=== PATIENT | female | born 1995 | race Caucasian/White ===

== ENCOUNTER 2019-01-01 08:03 | Outpatient (CLI) | payer MEDICAID ==
[~2019-01-01] VITALS: Ht 175.3 cm; Wt 104.1 kg
[~2019-01-01 08:03] MED LIST: CEPH-368 PO; HYDR-3240 PO; IBUP-1222 PO; SULF1TAB24 PO
[2019-01-01 09:00] VITALS: BP 123/65
[2019-01-01] MEDS ORDERED: PREN1TAB10 PO (10:45)
[2019-01-02] MEDS ORDERED: OXYC-302 PO (11:31)
[2019-01-02] MEDS ORDERED: IBUP-1222 PO (11:32)
== END 2019-01-01 11:13 | disposition home or self-care (01) ==
LOC: LDOP 08:03 → EDSTATUS 01-02 08:00
PROVIDERS: ATTEND Obstetrics & Gynecology
DX: O26.893 Other specified pregnancy related conditions, third trimester (principal); R10.9 Unspecified abdominal pain; Z3A.40 40 weeks gestation of pregnancy
CPT/HCPCS: 59025; 99211; G0463

== ENCOUNTER 2019-01-01 14:26 | Outpatient (CLI) | payer MEDICAID ==
[~2019-01-01] VITALS: Ht 175.3 cm; Wt 104.1 kg
[~2019-01-01 14:26] MED LIST changes: +PREN1TAB10 PO
[2019-01-01] MEDS ORDERED: OXYTOCIN 30U/ 0.9% NaCL 500ML 500 ML ONE (22:42)
[2019-01-02] MEDS ORDERED: OXYC-302 PO (11:31)
[2019-01-02] MEDS ORDERED: IBUP-1222 PO (11:32)
== END 2019-01-01 23:59 | disposition home or self-care (01) ==
LOC: LDOP 14:26
PROVIDERS: ATTEND Obstetrics & Gynecology
DX: Z02.9 Encounter for administrative examinations, unspecified (principal)

== ENCOUNTER 2019-01-01 15:09 | Inpatient (IN) | payer MEDICAID ==
[~2019-01-01] VITALS: Ht 175.3 cm; Wt 104.1 kg
[2019-01-01] MEDS ORDERED: NEWBORN KIT ONE (15:14)
[2019-01-01] MEDS ORDERED: LIDOCAINE 1%, 20ML ONE (15:15)
[2019-01-01] MEDS ORDERED: OXYTOCIN 30U/ 0.9% NaCL 500ML 500 ML ONE (15:15)
[2019-01-01] MEDS ORDERED: MISOPROSTOL 200 MCG TABLET ONE (15:15)
[2019-01-01] MEDS ORDERED: D5%-LACTATED RINGERS 1,000 ML IV SCH (15:20)
[2019-01-01] MEDS ORDERED: OXYTOCIN 30U/ 0.9% NaCL 500ML 500 ML IV ONE (15:20)
[2019-01-01] MEDS ORDERED: OXYTOCIN 30U/ 0.9% NaCL 500ML 500 ML IV PRN ×2 (15:20)
[2019-01-01] MEDS ORDERED: ONDANSETRON 2MG/ML, 2ML IVPush PRN (15:30)
[2019-01-01] MEDS ORDERED: FENTANYL PF 100 MCG/2ML IV PRN (15:30)
[2019-01-01] MEDS ORDERED: FENTANYL PF 100 MCG/2ML IVPush PRN (15:30)
[2019-01-01] MEDS: LACTATED RINGERS 1,000 ML IV SCH ×3 (15:33→17:32)
[2019-01-01 15:55] LABS: MEAN CORPUSCULAR HEMOGLOBIN 29.9 pg (27.0-34.8); MEAN CORPUSCULAR HGB CONC 34.4 g/dL (32.4-35.8); MEAN CORPUSCULAR VOLUME 86.7 fL (80-100); MEAN PLATELET VOLUME 7.4 fL (7.4-10.4); PLATELET COUNT 227 x10^3/uL (130-400); RED BLOOD COUNT 4.43 x10^6/uL (3.82-5.3); RED CELL DISTRIBUTION WIDTH 14.4 % (9.6-15.2)
[2019-01-01] MEDS ORDERED: FENTANYL/BUPIV./NS/PF 250 ML EPIDCONT SCH ×2 (15:57→16:48)
[2019-01-01] MEDS ORDERED: LACTATED RINGERS 1,000 ML IV SCH (15:57)
[2019-01-01 15:58] LABS: BASOPHILS # (AUTO) 0.05 x10^3/uL (0-0.1); BASOPHILS % (AUTO) 0 % (0-1); EOSINOPHILS # (AUTO) 0.35 x10^3/uL (0-0.4); EOSINOPHILS % (AUTO) 2 % (1-7); LYMPHOCYTES # (AUTO) 1.58 x10^3/uL (1-3.4); LYMPHOCYTES % (AUTO) 9 % (22-44); MD NO; MONOCYTES # (AUTO) 0.59 x10^3/uL (0.2-0.8); MONOCYTES % (AUTO) 3 % (2-9); NEUTROPHILS # (AUTO) 15.52 x10^3/uL (1.8-6.8); NEUTROPHILS % (AUTO) 86 % (42-75)
[2019-01-01] MEDS ORDERED: LACTATED RINGERS 1,000 ML IVBOLUS PRN ×2 (16:00→17:00)
[2019-01-01] MEDS ORDERED: FENTANYL PF 500 MCG, BUPIVACAINE/PF 0.5%, 30ML 62.5 ML in SODIUM CHLORIDE 0.9% 177.5 ML EPIDCONT SCH (16:30)
[2019-01-01] MEDS ORDERED: ONDANSETRON 2MG/ML, 2ML ONE (16:43)
[2019-01-01] MEDS ORDERED: BUPIVACAINE 0.25% ONE (16:50)
[2019-01-01] MEDS ORDERED: EPHEDRINE 50 MG/ML, 1ML IVPush PRN (17:00)
[2019-01-01] MEDS ORDERED: NALOXONE 0.4 MG/ML, 1ML IVPush PRN (17:00)
[2019-01-01] MEDS: OXYTOCIN 30U/ 0.9% NaCL 500ML 500 ML IV SCH ×3 (21:22→23:13)
[2019-01-01] MEDS ORDERED: OXYTOCIN 10 UNITS/ML, 1ML IM PRN (22:00)
[2019-01-01] MEDS ORDERED: OXYcodone IR 5MG TABLET PO PRN (22:00)
[2019-01-01] MEDS ORDERED: CALCIUM CARBONATE 500 MG TAB.CHEW PO PRN (22:00)
[2019-01-01] MEDS ORDERED: DOCUSATE 100 MG CAPSULE PO PRN (22:00)
[2019-01-01] MEDS ORDERED: MAGNESIUM HYDROXIDE 8%, 30ML UDC PO PRN (22:00)
[2019-01-01] MEDS ORDERED: ACETAMINOPHEN 325 MG TABLET PO PRN ×2 (22:00)
[2019-01-01] MEDS ORDERED: OXYcodone/APAP 5/325MG TABLET PO PRN (22:00)
[2019-01-01] MEDS ORDERED: ONDANSETRON 2MG/ML, 2ML IV PRN (22:00)
[2019-01-01] MEDS ORDERED: METHYLERGONOVINE 0.2 MG/ML IM PRN (22:00)
[2019-01-02] MEDS: IBUPROFEN 800 MG TABLET PO PRN ×3 (00:28→18:10)
[2019-01-02 00:30] VITALS: BP 105/62
[2019-01-02] MEDS: OXYTOCIN 30U/ 0.9% NaCL 500ML 500 ML IV SCH ×3 (00:39→17:47)
[2019-01-02] MEDS: LACTATED RINGERS 1,000 ML IV SCH (00:48)
[2019-01-02 03:40] VITALS: BP 102/63
[2019-01-02 06:17] LABS: BASOPHILS # (AUTO) 0.04 x10^3/uL (0-0.1); BASOPHILS % (AUTO) 0 % (0-1); EOSINOPHILS # (AUTO) 0.35 x10^3/uL (0-0.4); EOSINOPHILS % (AUTO) 2 % (1-7); LYMPHOCYTES # (AUTO) 2.37 x10^3/uL (1-3.4); LYMPHOCYTES % (AUTO) 13 % (22-44); MD NO; MEAN CORPUSCULAR HEMOGLOBIN 30.1 pg (27.0-34.8); MEAN CORPUSCULAR HGB CONC 34.3 g/dL (32.4-35.8); MEAN CORPUSCULAR VOLUME 87.8 fL (80-100); MEAN PLATELET VOLUME 7.6 fL (7.4-10.4); MONOCYTES # (AUTO) 1.12 x10^3/uL (0.2-0.8); MONOCYTES % (AUTO) 6 % (2-9); NEUTROPHILS # (AUTO) 13.96 x10^3/uL (1.8-6.8); NEUTROPHILS % (AUTO) 78 % (42-75); PLATELET COUNT 207 x10^3/uL (130-400); RED BLOOD COUNT 3.51 x10^6/uL (3.82-5.3); RED CELL DISTRIBUTION WIDTH 14.4 % (9.6-15.2)
[2019-01-02 07:15] VITALS: BP 99/62
[2019-01-02] MEDS ORDERED: PRENATAL VIT/IRON/FA 1 EACH TABLET PO SCH (09:00)
[2019-01-02] MEDS ORDERED: RHOGAM FROM BLOOD BANK 1 NOTE EA IM/IV ONE (09:00)
[2019-01-02] MEDS ORDERED: OXYC-302 PO (11:31)
[2019-01-02] MEDS ORDERED: IBUP-1222 PO (11:32)
[2019-01-02 12:05] VITALS: BP 99/62
[2019-01-02 16:40] VITALS: BP 99/56
[2019-01-02 19:00] VITALS: BP 108/67
== END 2019-01-02 22:35 | disposition home or self-care (01) | DRG 807 ==
LOC: LDIP 15:09 → 2NW 01-02 00:10
PROVIDERS: ADMIT Obstetrics & Gynecology; ATTEND Obstetrics & Gynecology
PROC: 10E0XZZ Delivery of Products of Conception, External Approach (ICD-10-PCS; principal; 2019-01-01)
PROC: 3E0R3BZ Introduction of Anesthetic Agent into Spinal Canal, Percutaneous Approach (ICD-10-PCS; 2019-01-01)
PROC: 00HU33Z Insertion of Infusion Device into Spinal Canal, Percutaneous Approach (ICD-10-PCS; 2019-01-01)
PROC: 10907ZC Drainage of Amniotic Fluid, Therapeutic from Products of Conception, Via Natural or Artificial Opening (ICD-10-PCS; 2019-01-01)
PROC: 0HQ9XZZ Repair Perineum Skin, External Approach (ICD-10-PCS; 2019-01-01)
PROC: 3E0234Z Introduction of Serum, Toxoid and Vaccine into Muscle, Percutaneous Approach (ICD-10-PCS; 2019-01-02)
DX: O70.0 First degree perineal laceration during delivery (principal); Z37.0 Single live birth; Z3A.40 40 weeks gestation of pregnancy; Z88.8 Allergy status to other drugs, medicaments and biological substances
CPT/HCPCS: 36415; 87806; J2790; J7121; 85025; 85461; 86762; 86850; 86900; 90656; G0378; J2405; J3010; J3490; G0475; J2590; J7050; J7120

== ENCOUNTER 2019-08-08 01:43 | Emergency (ER) | payer MEDICAID ==
[~2019-08-08] VITALS: Ht 175.3 cm; Wt 96.0 kg
[~2019-08-08 01:43] MED LIST changes: +OXYC-302 PO
--- NOTE | 2019-08-08 02:09 | NUR ---
TP RN: MERCEDES CALLED FOR PT
[2019-08-08 02:15] LABS: BASOPHILS # (AUTO) 0.03 x10^3/uL (0-0.1); BASOPHILS % (AUTO) 0 % (0-1); EOSINOPHILS # (AUTO) 0.16 x10^3/uL (0-0.4); EOSINOPHILS % (AUTO) 2 % (1-7); LYMPHOCYTES # (AUTO) 1.98 x10^3/uL (1-3.4); LYMPHOCYTES % (AUTO) 19 % (22-44); MD NO; MEAN CORPUSCULAR HEMOGLOBIN 29.2 pg (27.0-34.8); MEAN CORPUSCULAR HGB CONC 33.6 g/dL (32.4-35.8); MEAN CORPUSCULAR VOLUME 87.1 fL (80-100); MEAN PLATELET VOLUME 7.7 fL (7.4-10.4); MONOCYTES % (AUTO) 5 % (2-9); NEUTROPHILS # (AUTO) 8.02 x10^3/uL (1.8-6.8); NEUTROPHILS % (AUTO) 75 % (42-75); PLATELET COUNT 254 x10^3/uL (130-400); RED BLOOD COUNT 5.16 x10^6/uL (3.82-5.3); RED CELL DISTRIBUTION WIDTH 14.3 % (9.6-15.2)
--- NOTE | 2019-08-08 02:19 | NUR ---
RECEIVED REPORT FROM PUJA CAMPBELL(BREAKING FOR LUNCH) TO ASSUME CARE OF PT. URINE SAMPLE REQUESTED AND PT. ATTEMPTING TO PROVIDE AT THIS TIME.
[2019-08-08 02:27] LABS: ALANINE AMINOTRANSFERASE 54 U/L (12-78); ALBUMIN 4.3 g/dL (3.4-5.0); SALICYLATE LEVEL 1.8 mg/dL (2.8-20.0)
[2019-08-08 02:32] LABS: ALKALINE PHOSPHATASE 131 U/L (45-117); BILIRUBIN,TOTAL 0.6 mg/dL (0.2-1.0); TOTAL PROTEIN 7.8 g/dL (6.4-8.2)
--- NOTE | 2019-08-08 02:36 | NUR ---
PT. FATHER WAS IN LOBBY AND PT. HAD REQUESTED NO VISITORS UPON ARRIVAL. AT THIS TIME PT. REQUEST FOR FATHER TO COME BACK; FATHER NOW IN ROOM WITH PT. SITTER IN [place], ROOM SECURED. PT. VERY TEARFUL. PT. DENIES ANY PREVIOUS HX OF SI. PROCESS/POC DISCUSSED WITH PT. PT. CALM AND COOPERATIVE WITH STAFF.
[2019-08-08 02:40] LABS: ANION GAP 10 mmol/L (5-15); CHLORIDE 110 mmol/L (98-107)
--- NOTE | 2019-08-08 02:42 | NUR ---
PT HOME MED TAKEN TO PHARMACY.
[2019-08-08 02:47] LABS: AMPHETAMINE SCREEN, URINE Negative (Negative); BARBITURATE SCREEN, URINE Negative (Negative); BENZODIAZEPINE SCREEN, URINE Negative (Negative); CANNABINOID SCREEN, URINE Negative (Negative); COCAINE SCREEN, URINE Positive (Negative); METHADONE SCREEN, URINE Negative (Negative); OPIATE SCREEN, URINE Negative (Negative)
--- NOTE | 2019-08-08 04:11 | NUR ---
PT. FATHER LEFT BS AT THIS TIME. PT. AND FATHER WERE UPDATED ON POC AT THIS TIME FOR HBI EVAL IN THE AM. PT. PROVIDED WITH SPRITE PER REQUEST FOLLOWING SI PRECAUTIONS. PT. DENIES OTHER NEEDS AT THIS TIME. ROOM IS SECURED AND SITTER REMAINS IN SANTOS. VS UPDATED.
--- NOTE | 2019-08-08 05:34 | NUR ---
PT RESTING IN BED WITH EYES CLOSED. ALL SAFETY MEASURES IN PLACE. NEEDS MET. SITTER IN SANT[place].
--- NOTE | 2019-08-08 06:26 | NUR ---
PT RESTING IN BED. DENIES ANY NEEDS AT THIS TIME. ROOM SECURED PER PROTOCOL, SITTER IN LINE OF SIGHT IN HALLWAY.
--- NOTE | 2019-08-08 06:29 | NUR ---
PT. HAD REQUESTED TO HAVE IV TAKEN OUT. PER DR. VELASCO SINCE PT. IS ASYMPTOMATIC AND VSS OK TO TAKE IV OUT AT THIS TIME.
[2019-08-08] MEDS ORDERED: SERT50TA PO (06:33)
--- NOTE | 2019-08-08 07:00 | NUR ---
REPORT FROM PUJA FOFANA AND PUJA POZO. PT RESTING ON GURNEY. RESPIRATIONS EVEN AND UNLABORED. NADN. SITTER IN HALLWAY. ROOM SECURE.
--- NOTE | 2019-08-08 07:11 | NUR ---
BREAKFAST ORDERED FOR PT.
--- NOTE | 2019-08-08 07:40 | NUR ---
PT'S MOTHER, JORGE JOHNSON, CALLED AT THIS TIME TO ASK IF SHE COULD VISIT HER DAUGHTER. PER PT, OKAY TO HAVE MOTHER VISIT. MOTHER INFORMED, PT INFORMED. PT DENIES NEEDS. NADN. AWARE BREAKFAST IS ON THE WAY. ROOM SECURE. SITTER AT BEDSIDE.
--- NOTE | 2019-08-08 08:31 | NUR ---
PT DENIES SI/HI AT THIS TIME. AMBULATORY WITH STEADY GAIT TO BATHROOM AND BACK TO [facility]. PT AWARE OF POC. AWARE BREAKFAST IS ON THE WAY. NADN. DENIES NEEDS. ROOM SECURE. SITTER IN HALLWAY.
--- NOTE | 2019-08-08 08:35 | NUR ---
PT PROVIDED WITH BREAKFAST TRAY.
--- NOTE | 2019-08-08 08:52 | NUR ---
PT'S MOTHER AT BEDSIDE VISITING NOW.
--- NOTE | 2019-08-08 09:00 | NUR ---
REPORT RECEIVED FROM PUJA ESPINOZA AT BEDSIDE AT THIS TIME.PT IS AWAKE, ALERT AND ORIENTED, RESPS EVEN AND UNLABORED. PT CALM AND COOPERATIVE. PT DENIES ANY NEEDS AT THIS TIME. PT UPDATED WITH POC. PT HAS NOT CONSUMED ANY OF SI BREAKFAST TRAY, WHICH REMAINS AT BEDSIDE. MOTHER IS AT BEDSIDE WITH PATIENT'S PERMISSION. SITTER MONITORING FROM [facility]. ROOM SECURE. CARE ASSUMED AT THIS TIME.
--- NOTE | 2019-08-08 09:57 | NUR ---
TP RN: [facility] called to inquire about updated ETA for evaluation, per Paul at [facility], [facility] no longer offers [place] [facility] I have requested an evaluation from [facility] from [facility] distribution center supervisor.
--- NOTE | 2019-08-08 10:00 | NUR ---
PT RESTING ON GURNEY, PT AWAKE, ALERT AND ORIENTED. RESPS EVEN AND UNLABORED. MOTHER AT BEDSIDE. SITTER MONITORING FROM [facility].
--- NOTE | 2019-08-08 10:27 | NUR ---
TP RN: I have called [facility] for mobile assessment, Edita at [facility] stated that they do not offer services for this pt's insurance and directed me to call [facility] for a mobile assessment at . I have called & left a message on the mental health [facility] cell phone to request an assessment of this pt.
--- NOTE | 2019-08-08 11:09 | NUR ---
pt reassessed by this RN while no visitors were in room, pt states she initially took 2 sertraline yesterday "to calm down", then took more, "at least 10". when asked if this was a suicide attempt, the patient states "I don't know, I think maybe so." Pt is now denying SI, states suicidal thoughts were transient and have completely resolved. patient states "I want to go home, I want to be back with my babies." Pt is a&ox4, neuro intact. pt denies pain. Psyc CHEMISTRY TEACHER has been paged by TP RN to assess patient. Patient informed of POC. Housekeeping paged to bring hospital bed for patient.
--- NOTE | 2019-08-08 11:38 | NUR ---
TP RN: pt accepted by MD Key at [facility] for transfer at 1300
--- NOTE | 2019-08-08 11:40 | NUR ---
report given to PUJA Correa from [facility] who is accepting patient. Pt to be transported at 1300 today.
--- NOTE | 2019-08-08 11:50 | NUR ---
pt on gurney, awake, alert, resps even and unlabored. pt c/o nausea and dizziness, states this has been present since yesterday. MANUEL Vora notified, to order zofran once repeat EKG has been taken. report given to abby Stein.
--- NOTE | 2019-08-08 12:02 | NUR ---
BREAK RN: PT RESTING QUIETLY ON BED, INFORMED OF PENDING TRANSFER, UNDERSTANDING VERBALIZED. REPEAT EKG DONE.
[2019-08-08] MEDS ORDERED: ONDANSETRON ODT 8 MG ONE (12:23)
[2019-08-08] MEDS ORDERED: ONDANSETRON ODT 8 MG PO ONE (12:30)
--- NOTE | 2019-08-08 12:30 | NUR ---
SI LUNCH MEAL TRAY PROVIDED.
[2019-08-08 12:33] VITALS: BP 114/63
--- NOTE | 2019-08-08 13:15 | NUR ---
PT STATES NAUSEA HAS RESOLVED. PT A&O, RESPS EVEN AND UNLABORED. PT UPDATED WITH POC AND NEW TRANSPORT TIME ESTIMATED AT 1400. PT'S MOTHER CALLED REQUESTING UPDATE, WITH PATIENT'S PERMISSION, PT'S MOTHER WAS GIVEN UPDATED POC.
--- NOTE | 2019-08-08 13:16 | NUR ---
ROOM REMAINS SECURE, SITTER MONITORING FROM [facility].
--- NOTE | 2019-08-08 14:04 | NUR ---
EDMD LAW NOTIFIED PT COMPLAINS OF DIZZINESS (SINCE YESTERDAY) UNRESOLVED BY ZOFRAN. PT DENIES NAUSEA AT THIS TIME. PT A&OX4, NEURO INTACT, FSBS 96 TAKEN BY THIS RN. VSS. NOTIFIED PT HAS POOR APPETITE AND HAS REFUSED TO EAT TODAY. MD TO ORDER MECLIZINE TO BE ADMIN PRIOR TO TRANSPORT. PUJA CARREON NOTIFIED, REPORT GIVEN TO PUJA CARREON WHO IS ASSUMING CARE AT THIS TIME. SITTER MONITORING FROM [facility], ROOM REMAINS SECURE.
--- NOTE | 2019-08-08 14:05 | NUR ---
PT AWAKE LYING IN GURNEY. NAD NOTED AT THIS TIME. REPORT CALLED BY [facility] TO [facility]. AWAITING [facility] FITNESS ATTENDANT.
--- NOTE | 2019-08-08 14:26 | NUR ---
Report to [facility]. Belongings and legal 2000 with [facility]. Pt to be transported to [facility].
== END 2019-08-08 14:28 ==
LOC: ED 02:54
DX: T43.221A Poisoning by selective serotonin reuptake inhibitors, accidental (unintentional), initial encounter (principal); Y92.89 Other specified places as the place of occurrence of the external cause; F32.1 Major depressive disorder, single episode, moderate
CPT/HCPCS: 36415; 80053; 80307; 84703; 85025; 93005; 99285; Q0162

== ENCOUNTER 2020-09-12 16:29 | Emergency (ER) | payer MEDICAID ==
[~2020-09-12] VITALS: Ht 177.8 cm; Wt 86.0 kg
[~2020-09-12 16:29] MED LIST changes: +SERT50TA PO
--- NOTE | 2020-09-12 17:21 | NUR ---
AT BEDSIDE FOR ASSESSMENT
[2020-09-12 18:02] VITALS: BP 123/70
[2020-09-12 18:02] LABS: BASOPHILS % (AUTO) 0 % (0-1); EOSINOPHILS % (AUTO) 1 % (1-7); LYMPHOCYTES % (AUTO) 21 % (22-44); MEAN CORPUSCULAR HEMOGLOBIN 29.5 pg (27.0-34.8); MEAN CORPUSCULAR HGB CONC 33.7 g/dL (32.4-35.8); MEAN PLATELET VOLUME 7.5 fL (7.4-10.4); MONOCYTES % (AUTO) 4 % (2-9); NEUTROPHILS % (AUTO) 74 % (42-75); PLATELET COUNT 295 x10^3/uL (130-400); RED BLOOD COUNT 5.06 x10^6/uL (3.82-5.3); RED CELL DISTRIBUTION WIDTH 13.3 % (9.6-15.2)
[2020-09-12 18:08] LABS: MD NO
[2020-09-12 18:11] LABS: ALANINE AMINOTRANSFERASE 17 U/L (12-78); ALBUMIN 4.2 g/dL (3.4-5.0); ANION GAP 5 mmol/L (5-15); CHLORIDE 112 mmol/L (98-107); CREATININE 0.88 mg/dL (0.55-1.02)
[2020-09-12 18:15] LABS: ALKALINE PHOSPHATASE 107 U/L (45-117); BILIRUBIN,TOTAL 0.8 mg/dL (0.2-1.0); TOTAL PROTEIN 7.9 g/dL (6.4-8.2)
--- NOTE | 2020-09-12 18:19 | NUR ---
ALL RESULTS ARE BACK AT THIS TIME. CHART UP FOR RECHECK.
--- NOTE | 2020-09-12 18:38 | NUR ---
TASK RN: DC EDUCATION PROVIDED, PT DEMONSTRATES UNDERSTANDING. PT AMBULATED STEADILY TO DC WITH RN. FRIEND TO TRANSPORT PT HOME.
== END 2020-09-12 18:40 | disposition home or self-care (01) ==
LOC: ED 17:06
DX: R51.9 Headache, unspecified (principal); R29.0 Tetany; R10.9 Unspecified abdominal pain; R09.81 Nasal congestion
CPT/HCPCS: 36415; 70450; 80053; 84703; 85025; 93005; 99285